=== PATIENT | female | born 1965 | race Caucasian/White ===

== ENCOUNTER 2021-05-29 09:48 | Inpatient (IN) | payer MEDICARE ==
[~2021-05-29] VITALS: Ht 160 cm; Wt 65.9 kg
[~2021-05-29 09:48] MED LIST: CITA20TA28 PO; FERR325C PO; LORA0.5T PO; MAGN400T56 PO; MYCO500T5 PO; ONDA4TAB59 PO; TACR1CAP24 PO; VALP250S3 PO; WARF-55 PO; ZOC40T PO
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
--- NOTE | 2021-05-29 11:35 | NUR ---
pt stated dropped her off at the ER. Pt presents clean and well kempt.
[2021-05-29 11:54] LABS: BASOPHILS % (AUTO) 0.4 % (0-1); EOSINOPHILS # (AUTO) 0.1 X10'3 (0-0.9); EOSINOPHILS % (AUTO) 0.7 % (0-6); HEMATOCRIT 33.9 % (35.0-45.0); HEMOGLOBIN 11.4 g/dl (12.0-16.0); LYMPHOCYTES # (AUTO) 1.6 X10'3 (1.1-4.8); LYMPHOCYTES % (AUTO) 17.2 % (21-51); MEAN CORPUSCULAR HEMOGLOBIN 28.8 PG (27.0-31.0); MEAN CORPUSCULAR HGB CONC 33.6 g/dL (33.0-36.5); MEAN CORPUSCULAR VOLUME 85.7 FL (78-98); MEAN PLATELET VOLUME 7.4 FL (7.4-10.4); MONOCYTES # (AUTO) 0.8 X10'3 (0-0.9); NEUTROPHILS # (AUTO) 6.9 X10'3 (1.8-7.7); NEUTROPHILS % (AUTO) 72.7 % (42-75); PLATELET COUNT 369 X10'3 (140-440); RED BLOOD COUNT 3.96 X10'6 (4.20-5.60); RED CELL DISTRIBUTION WIDTH 14.6 % (11.5-14.5); WHITE BLOOD COUNT 9.4 X10'3 (4.5-11.0)
[2021-05-29 12:05] LABS: CLARITY,URINE CLOUDY (Clear); COLOR,URINE YELLOW (Yellow); GLUCOSE, URINE NEGATIVE (Neg); KETONES,URINE NEGATIVE (Neg); LEUKOCYTE ESTERASE ,URINE MODERATE (Neg); NITRITES, URINE POSITIVE (Neg); OCCULT BLOOD,URINE LARGE (Neg); PROTEIN,URINE NEGATIVE (Neg); UROBILINOGEN,URINE 0.2 E.U/dL (0.2-1.0)
[2021-05-29 12:07] LABS: UA COLLECTION TYPE VOIDED
[2021-05-29 12:10] LABS: ALANINE AMINOTRANSFERASE 20 U/L (12-78); ALBUMIN 4.4 G/DL (3.4-5.0); ALBUMIN/GLOBULIN RATIO 1.3 (1.1-1.5); ALKALINE PHOSPHATASE 109 IU/L (46-116); ANION GAP 17 (8-16); ASPARTATE AMINO TRANSFERASE 16 U/L (10-37); BILIRUBIN,TOTAL 0.4 MG/DL (0.1-1.0); BLOOD UREA NITROGEN 48 MG/DL (7-18); BUN/CREATININE RATIO 19.7 (6.6-38.0); CALCIUM 9.9 MG/DL (8.5-10.1); CHLORIDE 102 MMOL/L (99-107); CREATININE 2.44 MG/DL (0.40-0.90); GLUCOSE 100 MG/DL (70-104); MAGNESIUM 2.2 MG/DL (1.5-2.4); POTASSIUM 3.9 MMOL/L (3.5-5.1); SODIUM 138 MMOL/L (135-145); TOTAL CARBON DIOXIDE 18.8 MMOL/L (24-32); TOTAL PROTEIN 7.7 G/DL (6.4-8.2); eGFR 20 ML/MIN
[2021-05-29 12:15] LABS: BACTERIA,URINE 3+ /HPF (Neg); SQUAMOUS EPITHELIAL CELL,UR MANY /LPF (FEW)
--- NOTE | 2021-05-29 12:15 | NUR ---
[facility] stated they would call back after reviewing medications.
[2021-05-29 12:16] LABS: RBC,URINE 0-2 /HPF (0-2); WBC,URINE 20-30 /HPF (0-4)
[2021-05-29 12:25] LABS: URINE AMPHETAMINE SCREEN NEGATIVE (Neg); URINE BARBITUATE SCREEN NEGATIVE (Neg); URINE BENZODIAZEPINES SCREEN NEGATIVE (Neg); URINE CANNABINOID SCREEN NEGATIVE (Neg); URINE COCAINE SCREEN NEGATIVE (Neg); URINE METHADONE SCREEN NEGATIVE (Neg); URINE OPIATE SCREEN NEGATIVE (Neg); URINE PHENCYCLIDINE SCREEN NEGATIVE (Neg)
--- NOTE | 2021-05-29 12:44 | NUR ---
fredrick from poison control stated to monitor for tire fabricator depression or possible seizure activity for 6hrs. he asked for tylenol and aspirin levels. shania yeh aware.
[2021-05-29 14:14] LABS: ACETAMINOPHEN < 2.0 UG/ML (10-30)
[2021-05-29] MEDS ORDERED: levoFLOXACIN-Levaquin 250mg/D5 50 ML IV ONE (14:35)
[2021-05-29] MEDS ORDERED: normal saline 1000ML IV soln IVB ONE (14:35)
[2021-05-29] MEDS ORDERED: LORazepam 2 mg/ml vial IV ONE (14:45)
[2021-05-29] MEDS ORDERED: ERGO500056 PO (15:04)
[2021-05-29] MEDS ORDERED: CINA30TA7 PO (15:04)
[2021-05-29] MEDS ORDERED: SODI650T29 PO (15:04)
[2021-05-29] MEDS ORDERED: WARF4TAB69 PO (15:16)
[2021-05-29] MEDS ORDERED: MAGN400C PO (15:18)
[2021-05-29] MEDS ORDERED: MECO10005 PO (15:18)
[2021-05-29] MEDS ORDERED: WARF-65 PO (15:18)
[2021-05-29] MEDS ORDERED: morphine 2 MG/ML inj. syringe IV PRN (15:45)
[2021-05-29] MEDS ORDERED: ondansetron/PF 4mg/2ml inj IV PRN (15:45)
[2021-05-29] MEDS ORDERED: acetaminophen 325mg tablet PO PRN ×2 (15:45)
[2021-05-29] MEDS ORDERED: HYDROcodone/acetaminophen 5mg/325mg tablet PO PRN (15:45)
[2021-05-29] MEDS ORDERED: FLU VACC QS2021-22(6MOS UP)/PF 60 MCG/0.5 ML SYRINGE IM ONE (16:50)
[2021-05-29] MEDS ORDERED: pneumococcal 23-VAL P-sac vacc 25 mcg/0.5ml vial IMVAC ONE (16:50)
[2021-05-29] MEDS: normal saline 1000ml 1,000 ML IV SCH (18:56)
[2021-05-29] MEDS: heparin, porcine 5000 units/ml vial SQ SCH (20:14)
[2021-05-29] MEDS: ciprofloxacin 250mg tablet PO SCH (20:14)
--- NOTE | 2021-05-29 21:48 | NUR ---
report to [facility] unit RN
[2021-05-29 22:00] VITALS: BP 97/64
--- NOTE | 2021-05-29 22:50 | NUR ---
2200: Received report from UVALDO Slater. Patient arrived to unit in no apparent distress. ALOx4, with two bags of belongings and purse
[2021-05-30] MEDS: normal saline 1000ml 1,000 ML IV SCH ×2 (00:51→11:45)
[2021-05-30 02:00] VITALS: BP 105/68
[2021-05-30 05:22] LABS: BASOPHILS % (AUTO) 0.7 % (0-1); EOSINOPHILS # (AUTO) 0.1 X10'3 (0-0.9); EOSINOPHILS % (AUTO) 2.7 % (0-6); HEMATOCRIT 27.4 % (35.0-45.0); HEMOGLOBIN 9.2 g/dl (12.0-16.0); LYMPHOCYTES # (AUTO) 1.2 X10'3 (1.1-4.8); LYMPHOCYTES % (AUTO) 22.5 % (21-51); MEAN CORPUSCULAR HEMOGLOBIN 29.5 PG (27.0-31.0); MEAN CORPUSCULAR HGB CONC 33.5 g/dL (33.0-36.5); MEAN CORPUSCULAR VOLUME 87.9 FL (78-98); MEAN PLATELET VOLUME 7.7 FL (7.4-10.4); MONOCYTES # (AUTO) 0.5 X10'3 (0-0.9); MONOCYTES % (AUTO) 10.5 % (2-12); NEUTROPHILS # (AUTO) 3.3 X10'3 (1.8-7.7); NEUTROPHILS % (AUTO) 63.6 % (42-75); PLATELET COUNT 235 X10'3 (140-440); RED BLOOD COUNT 3.12 X10'6 (4.20-5.60); RED CELL DISTRIBUTION WIDTH 14.8 % (11.5-14.5); WHITE BLOOD COUNT 5.2 X10'3 (4.5-11.0)
[2021-05-30 05:34] LABS: ALANINE AMINOTRANSFERASE 13 U/L (12-78); ALBUMIN/GLOBULIN RATIO 1.1 (1.1-1.5); ALKALINE PHOSPHATASE 83 IU/L (46-116); ANION GAP 12 (8-16); ASPARTATE AMINO TRANSFERASE 12 U/L (10-37); BILIRUBIN,TOTAL 0.2 MG/DL (0.1-1.0); BLOOD UREA NITROGEN 38 MG/DL (7-18); BUN/CREATININE RATIO 18.9 (6.6-38.0); CALCIUM 8.2 MG/DL (8.5-10.1); CHLORIDE 111 MMOL/L (99-107); CREATININE 2.01 MG/DL (0.40-0.90); GLUCOSE 115 MG/DL (70-104); POTASSIUM 4.1 MMOL/L (3.5-5.1); SODIUM 143 MMOL/L (135-145); TOTAL CARBON DIOXIDE 19.9 MMOL/L (24-32); TOTAL PROTEIN 5.7 G/DL (6.4-8.2); eGFR 26 ML/MIN
[2021-05-30 06:00] VITALS: BP 95/61
--- NOTE | 2021-05-30 06:21 | NUR ---
Problems reprioritized. Patient report given, questions answered & plan of care reviewed with UVALDO Pena.
--- NOTE | 2021-05-30 06:52 | NUR ---
Patient in room [facility] 316. I have received report from Lance BAILON and had the opportunity to ask questions and assume patient care.
[2021-05-30] MEDS: ciprofloxacin 250mg tablet PO SCH (08:00)
[2021-05-30] MEDS: heparin, porcine 5000 units/ml vial SQ SCH ×3 (08:00→09:20)
[2021-05-30 10:00] VITALS: BP 97/62
--- NOTE | 2021-05-30 13:12 | NUR ---
Spoke to Poison control regarding pt's health regarding her overdose. They recommend that pt stays here one more day because her INR is too high. 4.1H (2.9). Dr Chowdary will be paged.
--- NOTE | 2021-05-30 13:24 | NUR ---
PAGER ID: [phone] MESSAGE: Elsy Vega [id number]- Poison control called and reviewed pt's labs, they stated that they recommend pt stays one more day at least until her INR drops from 4.1H. Please advise. Becky Conteh [phone]
--- NOTE | 2021-05-30 14:28 | NUR ---
PT paged so pt can be DC to home. Per Dr boss.
--- NOTE | 2021-05-30 14:57 | NUR ---
spoke to Duncan about pt going home. He was very happy and said he will be here the soonest she is ready to come home.
[2021-05-30 15:00] VITALS: BP 97/60
--- NOTE | 2021-05-30 15:01 | NUR ---
PT worked with pt, recommends a 4th wheel walker before DC. Dr Chowdary will be notified. Case Management was paged as well.
--- NOTE | 2021-05-30 17:38 | NUR ---
Pt Dc to home with . Pt is A & o x4 and in no apparent distress. Pt verbalizes understanding of all DC orders and knows the importance of following up with PCP. pt's IV removed intact. Pt also is following up with cardiology office wednesday to check her INR. (4.1) Pt got dressed packed her stuff and was wheeled to the front.
[2021-05-30] MEDS ORDERED: tacrolimus anhydrous 1mg capsule PO SCH (20:00)
[2021-05-30] MEDS ORDERED: mycophenolate mofetil 250mg capsule PO SCH (20:00)
[2021-05-30] MEDS ORDERED: atorvastatin 20mg tablet PO SCH (21:00)
[2021-05-31] MEDS ORDERED: cyanocobalamin 500mcg tablet PO SCH (08:00)
[2021-05-31] MEDS ORDERED: cinacalcet 30mg tablet PO SCH (08:00)
[2021-05-31] MEDS ORDERED: citalopram 20mg tablet PO SCH (08:00)
[2021-05-31] MEDS ORDERED: magnesium oxide 400mg tablet PO SCH (08:00)
== END 2021-05-30 17:25 | disposition home or self-care (01) | DRG 918 ==
LOC: EEVIPCON 09:49 → ER 09:49 → MED 3N 15:50
PROVIDERS: ADMIT Internal Medicine; ATTEND Internal Medicine
PROC: 3E0234Z Introduction of Serum, Toxoid and Vaccine into Muscle, Percutaneous Approach (ICD-10-PCS; principal; 2021-05-29)
PROC: 3E02340 Introduction of Influenza Vaccine into Muscle, Percutaneous Approach (ICD-10-PCS; 2021-05-29)
DX: T50.992A Poisoning by other drugs, medicaments and biological substances, intentional self-harm, initial encounter (principal); N39.0 Urinary tract infection, site not specified; Z94.0 Kidney transplant status; E78.5 Hyperlipidemia, unspecified; Z20.822 Contact with and (suspected) exposure to COVID-19; F32.A Depression, unspecified; I12.9 Hypertensive chronic kidney disease with stage 1 through stage 4 chronic kidney disease, or unspecified chronic kidney disease; W01.0XXA Fall on same level from slipping, tripping and stumbling without subsequent striking against object, initial encounter; N18.9 Chronic kidney disease, unspecified; Z66 Do not resuscitate; T36.8X5A Adverse effect of other systemic antibiotics, initial encounter; R79.1 Abnormal coagulation profile; M48.02 Spinal stenosis, cervical region; R26.2 Difficulty in walking, not elsewhere classified; Z86.718 Personal history of other venous thrombosis and embolism; Y93.89 Activity, other specified; Y99.8 Other external cause status; Z88.8 Allergy status to other drugs, medicaments and biological substances; Z88.2 Allergy status to sulfonamides; Z91.041 Radiographic dye allergy status; Z23 Encounter for immunization; Y92.89 Other specified places as the place of occurrence of the external cause
CPT/HCPCS: 36415; 70450; 71045; 72125; 72131; 80053; 80305; 80329; 81001; 82140; 83735; 84443; 85025; 85610; 87081; 87635; 90732; 93005; 96365; 96375; 97161; 97530; 99285; C9803; G0378; J1644; J1956; J2060; J7030

== ENCOUNTER 2021-06-10 10:32 | Emergency (ER) | payer MEDICARE ==
[~2021-06-10] VITALS: Ht 160 cm; Wt 63.6 kg
[~2021-06-10 10:32] MED LIST changes: +CINA30TA7 PO; +ERGO500056 PO; -FERR325C PO; -LORA0.5T PO; +MAGN400C PO; -MAGN400T56 PO; +MECO10005 PO; -ONDA4TAB59 PO; -VALP250S3 PO; -WARF-55 PO
[2021-06-10 11:11] LABS: BASOPHILS % (AUTO) 0.4 % (0-1); EOSINOPHILS # (AUTO) 0.1 X10'3 (0-0.9); EOSINOPHILS % (AUTO) 0.7 % (0-6); HEMATOCRIT 33.1 % (35.0-45.0); HEMOGLOBIN 11.2 g/dl (12.0-16.0); LYMPHOCYTES # (AUTO) 0.8 X10'3 (1.1-4.8); LYMPHOCYTES % (AUTO) 10.1 % (21-51); MEAN CORPUSCULAR HEMOGLOBIN 29.3 PG (27.0-31.0); MEAN CORPUSCULAR HGB CONC 33.7 g/dL (33.0-36.5); MEAN CORPUSCULAR VOLUME 86.9 FL (78-98); MEAN PLATELET VOLUME 7.7 FL (7.4-10.4); MONOCYTES # (AUTO) 0.6 X10'3 (0-0.9); MONOCYTES % (AUTO) 7.8 % (2-12); NEUTROPHILS # (AUTO) 6.7 X10'3 (1.8-7.7); PLATELET COUNT 340 X10'3 (140-440); RED BLOOD COUNT 3.81 X10'6 (4.20-5.60); RED CELL DISTRIBUTION WIDTH 15.4 % (11.5-14.5); WHITE BLOOD COUNT 8.3 X10'3 (4.5-11.0)
[2021-06-10 11:19] LABS: ALANINE AMINOTRANSFERASE 16 U/L (12-78); ALBUMIN 4.2 G/DL (3.4-5.0); ALBUMIN/GLOBULIN RATIO 1.4 (1.1-1.5); ALKALINE PHOSPHATASE 112 IU/L (46-116); ANION GAP 14 (8-16); ASPARTATE AMINO TRANSFERASE 10 U/L (10-37); BILIRUBIN,TOTAL 0.4 MG/DL (0.1-1.0); BLOOD UREA NITROGEN 31 MG/DL (7-18); BUN/CREATININE RATIO 16.8 (6.6-38.0); CALCIUM 9.2 MG/DL (8.5-10.1); CHLORIDE 103 MMOL/L (99-107); CREATININE 1.84 MG/DL (0.40-0.90); GLUCOSE 123 MG/DL (70-104); POTASSIUM 4.2 MMOL/L (3.5-5.1); SODIUM 138 MMOL/L (135-145); TOTAL CARBON DIOXIDE 21.3 MMOL/L (24-32); TOTAL PROTEIN 7.2 G/DL (6.4-8.2); eGFR 28 ML/MIN
[2021-06-10 15:20] VITALS: BP 119/82
== END 2021-06-10 15:22 | disposition home or self-care (01) ==
LOC: ER 10:33
DX: R25.1 Tremor, unspecified (principal); F32.9 Major depressive disorder, single episode, unspecified; I12.9 Hypertensive chronic kidney disease with stage 1 through stage 4 chronic kidney disease, or unspecified chronic kidney disease; N18.9 Chronic kidney disease, unspecified; Z86.718 Personal history of other venous thrombosis and embolism; Z94.0 Kidney transplant status; Z79.899 Other long term (current) drug therapy; Z88.1 Allergy status to other antibiotic agents; Z88.2 Allergy status to sulfonamides; Z91.041 Radiographic dye allergy status; Z88.8 Allergy status to other drugs, medicaments and biological substances
CPT/HCPCS: 36415; 80053; 85025; 99283